=== PATIENT | female | born 1950 | race Caucasian/White ===

== ENCOUNTER 2016-07-21 08:02 | Day surgery (SDC) | payer OTHER ==
[~2016-07-21] VITALS: Ht 154.9 cm; Wt 63.4 kg
[~2016-07-21 08:02] MED LIST: ASPI-664 PO; CARV12.579 PO; LOSA25TA2 PO; NEBI5TAB9 PO; RANI75TA13 PO
[2016-07-21] MEDS ORDERED: AMLO5TAB4 PO (09:46)
[2016-07-21 09:47] VITALS: Ht 154.9 cm; Wt 63.4 kg
[2016-07-21 09:57] VITALS: BP 165/80; PULSE 58; RESP 20
[2016-07-21 10:55] VITALS: BP 151/64; PULSE 60; RESP 16
--- NOTE | 2016-07-21 11:23 | GILP ---
DATE OF PROCEDURE: 07/21/2016 NAME OF PROCEDURE: Colonoscopy. SURGEON: Vinod Dowling MD PREOPERATIVE DIAGNOSIS: Screening colonoscopy. POSTOPERATIVE DIAGNOSES 1. Colonoscopy all the way to the cecum. 2. Internal hemorrhoids. 3. No colon neoplasm was identified. INDICATION FOR THE PROCEDURE: Ms. Mariaelena Barnes is a 66-year-old female patient who was schedu led for screening colonoscopy. The procedure and possible complications were well explained to the patient, she understood and cons ented to the procedure. DESCRIPTION OF PROCEDURE: Under the influence of fentanyl and Versed, the colonoscope was carefully introduced in the rectum and under direct vision, it was advanced all the way to the cecum. FINDINGS: The patient had internal hemorrhoids. No colon neoplasm was identified. She tolerated the procedure very well and there was no complication from the procedure. At the end of the procedure, she was awake with stable vital signs and she was discharged home to the care of h er family. IMPRESSION: 1. Colonoscopy all the way to the cecum. 2. Internal hemorrhoids. 3. No colon neoplasm was identified. PLAN: Next screening colonoscopy in 10 years. Dictated By: VINOD DOWLING MD GD/NTS Conf#: [id number] DID#: [id number] CC: VINOD DOWLING MD;*EndCC*
[2016-07-21] MEDS ORDERED: MIDAZOLAM 1 MG/ML 2 ML INJ ONE ×2 (17:23)
[2016-07-21] MEDS ORDERED: FENTAnyl 50 MCG/ML VIAL ONE (17:24)
== END 2016-07-21 15:02 | disposition home or self-care (01) ==
LOC: GIL 08:02
PROVIDERS: ATTEND Internal Medicine Gastroenterology
DX: Z12.11 Encounter for screening for malignant neoplasm of colon (principal); K64.8 Other hemorrhoids
CPT/HCPCS: 45378; J2250; J3010; Z7610

== ENCOUNTER 2017-09-10 19:27 | Emergency (ER) | END 2017-09-10 23:13 | disposition home or self-care (01) ==